=== PATIENT | female | born 1990 | race Caucasian/White ===

== ENCOUNTER 2021-05-25 22:42 | Emergency (ER) | payer BC, MEDICAID ==
[2021-05-26] MEDS ORDERED: Bupivacaine 0.5% 10 ML SDV INJECT ONE (01:33)
--- NOTE | 2021-05-26 02:20 | EDM.PDOC ---
ED HPI GENERAL MEDICAL PROBLEM - General Chief Complaint: Headache Stated Complaint: HEAD PRESSURE, PAIN IN HEAD Time Seen by Provider: 05/26/21 00:59 - History of Present Illness INITIAL COMMENTS - FREE TEXT/NARRATIVE: CHIEF COMPLAINT(S): Headache HISTORY OF PRESENT ILLNESS: This is a 30-year-old woman with a past medical history of anxiety who presents to the emergency department with a headache. Patient states that for approximately 10 to 12 days now she has been experiencing a headache. She describes the headache as pressure at the back of her head and her upper back. She describes the pain as pressure-like and rates it as a 6 out of 10. She denies any nausea, vomiting, trouble walking, trouble speaking or trouble swallowing. She states that she feels in addition denies pressure and fluid in her ears. She feels it mainly behind her right eye. She denies any fever, neck pain or stiffness. She states that her vaccinations are up-to-date. She denies any runny nose or congestion. She states that he tried Sudafed today without any relief. He states that she was given doxycycline that seemed to make the pressure worse. She describes her right eye is blurry but does not describe any floaters or loss of vision. She denies any double vision. She denies any family of multiple sclerosis or rheumatological diseases. She states that she just does not know what is going on. There are no exacerbating factors or relieving factors. REVIEW OF SYSTEMS: Constitutional: Denies fever, chills. Eyes: Denies eye pain Ears, Nose, Mouth, & Throat: Positive for sinus pressure and right ear pressure. Cardiovascular: Denies chest pain Respiratory: Denies shortness of breath Gastrointestinal: Denies Nausea, vomiting, diarrhea, hematochezia. Genitourinary: Denies hematuria Skin:Denies a rash MSK: Denies joint pain Neurological: Positive for headache and blurred vision in right eye. Denies numbness, tingling, weakness, trouble walking, trouble speaking, trouble swallowing Psychiatric: Denies depression PAST MEDICAL HISTORY: As per history of present illness and as reviewed below otherwise noncontributory. SURGICAL HISTORY: As per history of present illness and as reviewed below otherw ise noncontributory. SOCIAL HISTORY: As per history of present illness and as reviewed below otherwise noncontributory. FAMILY HISTORY: As per history of present illness and as reviewed below otherw ise noncontributory. EXAMINATION OF ORGAN SYSTEMS/BODY AREAS: Constitutional: Blood pressure was 126/87, heart rate 89, respiratory rate 14 with an oxygen saturation of 99% on room air. Temperature 36.1 General: Well-appearing woman who is in no acute distress Psychiatric: Appropriate mood and affect. Eyes: No scleral icterus or conjunctival erythema pupils were 3 mm and reactive bilaterally. Extraocular moments are intact. No signs of entrapment. No proptosis. No ptosis. No vertical or horizontal nystagmus. Visual acuity is normal and documented in nursing note. No hyphema, no hypopyon. ENMT: Moist mucous membranes. No pharyngeal erythema normal dentition. No stridor, drooling or trismus. Bilateral tympanic membranes without any effusion or erythema. There is some bulging of bilateral eardrums. Cardiovascular: Regular, rate, and rhythm. No gallops, murmurs, or rubs. Bilateral upper extremity pulses symmetric and intact. No peripheral edema. No JVD. Respiratory: Lungs clear to auscultation bilaterally. No wheezes, rales, or rhonchi. Gastrointestinal: Soft, non-tender, non-distended. Normoactive bowel sounds Genitourinary: No suprapubic tenderness Musculoskeletal: Tenderness to palpation along the base of the skull and laterally in the paracervical region with tense musculature. Skin: No lesions or abrasions. Neurological: AOx4. CN grossly intact. Strength 5/5 in bilateral upper and lower extremity. Sensation is intact bilaterally in upper and lower extremity. Gait appears normal. Finger to nose, heel to gardner, rapid alternating movements intact. MEDICAL DECISION MAKING AND COURSE IN THE ED WITH INTERPRETATION/REVIEW OF DIAGNOSTIC STUDIES: This is a 30-year-old woman without any significant past medical history who presents emergency department with about 12 days of headache with right-sided sinus pressure and reported blurry vision who has normal visual acuity normal examination and normal vital signs at this time. I do believe the patient's headache is likely secondary to a tension headache given that she has tenderness along the base of the skull bilaterally and paracervical muscular tenderness. I did offer the patient a trigger point injection to help with some relief and encouraged her to use Tylenol and Motrin. She elected for trigger point injection at this time. In addition I do believe there is a component of eustachian tube dysfunction and discussed with her that she should use nasal saline rinses, Flonase twice a day and she may use Afrin once however I do not recommend she do it any further than that. I did encourage her to follow-up with ENT and ophthalmology if she had continued events. She was also given strict return precautions. The patient was amenable to this plan and had no further questions. I do not believe any further labs or imaging are indicated for this young lady. Approximately 2.5 cc of 0.5% bupivacaine was injected along the trapezius equal bilaterally without any significant complication. Patient reported symptomatic improvement while in the emergency department. DISPOSITION: The patient was discharged home in stable condition. The patient will follow up with ENT and ophthalmology CONDITION: Fair PROCEDURES: None FINAL IMPRESSION(S)/DIAGNOSES: 1. Acute tension headache 2. Acute sinus pressure likely secondary to eustachian tube dysfunction Hardik Alberto M.D. Treatments CHANNEL DIRECTOR: Reports: Other (see below) Other Treatments CHANNEL DIRECTOR: Sudafed at 1200 this afternoon Head Pain Score (Numeric/FACES): 6 - Related Data Allergies Allergy/AdvReac Type Severity Reaction Status Date / Time cephalexin [From Keflex] Allergy Rash Verified 05/25/21 23:17 Home Meds: Home Meds Escitalopram [Lexapro] 10 mg PO DAILY 05/25/21 [History] LORazepam [Ativan] 0.5 mg PO DAILY PRN 05/25/21 [History] Multivitamin [Multi-Vitamin Daily] 1 tab PO DAILY 05/25/21 [History] Fluticasone Propionate [Flonase] 1 spray .XX BID #1 bottle 05/26/21 [Rx] Past Medical History - Past Health History Medical/Surgical History: Denies Medical/Surgical History HEENT History: Reports: None Cardiovascular History: Reports: None Respiratory History: Reports: None Gastrointestinal History: Reports: None Genitourinary History: Reports: None ELECTRIC DISTRIBUTION CHECKER History: Reports: Other (See Below) Other ELECTRIC DISTRIBUTION CHECKER History: ovarian cysts Musculoskeletal History: Reports: None Neurological History: Reports: None Psychiatric History: Reports: None Endocrine/Metabolic History: Reports: None Hematologic History: Reports: None Immunologic History: Reports: None Oncologic (Cancer) History: Reports: None Dermatologic History: Reports: None - Infectious Disease History Infectious Disease History: Reports: Chicken Pox, Novel Coronavirus - Past Surgical History Head Surgeries/Procedures: Reports: None HEENT Surgical History: Reports: Tonsillectomy Female Surgical History: Reports: Breast Implant Dermatological Surgical History: Reports: Plastic Surgical Reconstruction/Repair Social & Family History - Family History Family Medical History: No Pertinent Family History - Tobacco Use Tobacco Use Status *Q: Never Tobacco User - Caffeine Use Caffeine Use: Reports: None - Recreational Drug Use Recreational Drug Use: No ED ROS GENERAL - Review of Systems Review Of Systems: See Below ED EXAM, GENERAL - Physical Exam Exam: See Below Course - Vital Signs Last Recorded V/S: Last Vital Signs Temp 36.1 C 05/25/21 23:19 Pulse 78 05/26/21 02:45 Resp 16 05/26/21 02:45 BP 121/84 05/26/21 02:45 Pulse Ox 98 05/26/21 02:45 - Orders/Labs/Meds Meds: Medications Discontinued Medications Generic Name Dose Route Start Last Admin Trade Name Freq PRN Reason Stop Dose Admin Bupivacaine HCl 10 ml 05/26/21 01:33 05/26/21 02:44 Bupivacaine 0.5% 10 Ml Sdv INJECT 05/26/21 01:34 10 ml ONETIME ONE Administration Departure - Departure Time of Disposition: 02:19 Disposition: Home, Self-Care 01 Condition: Fair Clinical Impression: Tension-type headache, Cervical strain, Eustachian tube dysfunction - Discharge Information *PRESCRIPTION DRUG MONITORING PROGRAM REVIEWED*: No *COPY OF PRESCRIPTION DRUG MONITORING REPORT IN PATIENT RIVER: No Prescriptions: Fluticasone Propionate [Flonase] 1 spray .XX BID #1 bottle Instructions: Eustachian Tube Dysfunction, Tension Headache, Adult, [id number], Muscle Strain Referrals: PCP,None [Primary Care Provider] - Forms: ED Department Discharge Additional Instructions: You were evaluated today on an emergent basis. At this time I do believe that your neck and headache is secondary to what is likely a tension headache. This is when the muscles on the back of your head are tense and tender. We did provide you with a trigger point injection. This only provides temporary relief. I recommend that you use Tylenol and Motrin [id number] and I would like you to do the stretches we discussed. In addition given the symptoms in your ear and the pressure I would like you to use Flonase twice a day and Zyrtec at night. I would like you to follow-up with your primary care physician in 3 to 5 days for reevaluation. In addition I do recommend that you follow-up with an information systems security manager and an ENT specialist for reevaluation. If you have any worsening symptoms I would like you to return to the emergency department. Please use: Tylenol 500-1000mg every 6 hours (DO NOT TAKE MORE THAN 4000mg in 1 day) Ibuprofen 400mg every 6 hours (Take with food as it can cause ulcers, GI upset) Example schedule: 8:00 AM (Tylenol 500-1000mg) 11:00 AM (Ibuprofen 400mg) 2:00 PM (Tylenol 500-1000mg) 5:00 PM (Ibuprofen 400mg) In addition to Tylenol and Motrin you may use over the counter creams such as Voltaren Cream or Lidocaine Cream (Lidoderm) as needed 4 times a day for symptomatic relief. Ice the area 20 minutes 4 times per day ENT Dr. Shahana Porras, MD [phone] [place], [place] [phone] The patient is informed of any results of their evaluation and diagnostic workup and all questions are answered. They are given discharge instructions and return precautions. The patient is stable for discharge. The patient states they understand and agree with the plan and that they will return if their symptoms get worse or if they have any new concerns. The following information is given to patients seen in the emergency department who are being discharged to home. This information is to outline your options for follow-up care. We provide all patients seen in our emergency department with a follow-up referral. The need for follow-up, as well as the timing and circumstances, are variable depending upon the specifics of your emergency department visit. If you don't have a primary care physician on staff, we will provide you with a referral. We always advise you to contact your personal physician following an emergency department visit to inform them of the circumstance of the visit and for follow-up with them and/or the need for any referrals to a consulting specialist. The emergency department will also refer you to a specialist when appropriate. This referral assures that you have the opportunity for follow-up care with a specialist. All of these measure are taken in an effort to provide you with optimal care, which includes your follow-up. Under all circumstances we always encourage you to contact your private physician who remains a resource for coordinating your care. When calling for follow-up care, please make the office aware that this follow-up is from your recent emergency room visit. If for any reason you are refused follow-up, please contact the [facility] at and asked to speak to the emergency department charge nurse. Sepsis Event Note (ED) - Evaluation Sepsis Screening Result: No Definite Risk
== END 2021-05-26 02:45 | disposition home or self-care (01) ==
LOC: MW.ED 22:42
DX: S16.1XXA Strain of muscle, fascia and tendon at neck level, initial encounter (principal); G44.209 Tension-type headache, unspecified, not intractable; Z86.16 Personal history of COVID-19; Z88.1 Allergy status to other antibiotic agents; H69.80 Other specified disorders of Eustachian tube, unspecified ear; X58.XXXA Exposure to other specified factors, initial encounter
CPT/HCPCS: 20552; 99283; J3490

== ENCOUNTER 2021-12-11 17:06 | Emergency (ER) | payer BC, OTHER ==
[2021-12-11] MEDS ORDERED: Ciprofloxacin 500 MG Tab PO ONE (17:46)
[2021-12-11] MEDS ORDERED: Sodium Chloride 0.9% 1,000 ML IV ONE (17:46)
[2021-12-11] MEDS ORDERED: Phenazopyridine 200 MG Tab PO ONE (17:52)
[2021-12-11 18:25] LABS: BLOOD UREA NITROGEN,BUN 10 mg/dL (7.0-18.0); CARBON DIOXIDE,CO2 28.6 mmol/L (21.0-32.0); CHLORIDE,CL 101 mmol/L (98-107); GLUCOSE RANDOM 91 mg/dL (74-106); SODIUM,NA 135 mmol/L (136-145)
[2021-12-11] MEDS ORDERED: Ondansetron 4 MG Tab.DIS PO ONE (19:22)
== END 2021-12-11 19:32 | disposition home or self-care (01) ==
LOC: MW.ED 17:06
DX: N39.0 Urinary tract infection, site not specified (principal); Z88.1 Allergy status to other antibiotic agents
CPT/HCPCS: 36415; 80053; 81001; 81025; 85025; 87086; 99284; A9270